=== PATIENT | female | born 1995 | race Caucasian/White ===

== ENCOUNTER 2021-09-06 23:51 | Emergency (ER) | payer BC ==
[2021-09-07] MEDS ORDERED: CYCLOBENZAPRINE10 MG PO ×2 (04:03→04:05)
[2021-09-07] MEDS ORDERED: MEDROL DOSEPAK4 MG PO (04:05)
== END 2021-09-07 04:12 | disposition home or self-care (01) ==
LOC: ED 23:51
DX: M54.50 Low back pain, unspecified (principal)